=== PATIENT | female | born 1940 | race Caucasian/White ===

== ENCOUNTER 2018-06-24 09:57 | Day surgery (SDC) | payer OTHER, MEDICARE ==
[~2018-06-24] VITALS: Ht 157.5 cm; Wt 129.8 kg
[2018-06-24] MEDS ORDERED: SODIUM CHLORIDE 0.9% 1,000 ML IV SCH ×2 (10:44→15:30)
[2018-06-24 10:49] VITALS: BP 124/79
[2018-06-24] MEDS ORDERED: PLEASE ENTER HEIGHT AND WEIGHT MC SCH (11:00)
[2018-06-24] MEDS ORDERED: CHOL100011 PO (11:02)
[2018-06-24] MEDS ORDERED: ASPI-650 PO (11:02)
[2018-06-24] MEDS ORDERED: AMLO-150 PO (11:02)
[2018-06-24] MEDS ORDERED: LEVO112T4 PO (11:02)
[2018-06-24] MEDS ORDERED: lisinopril PO (11:02)
[2018-06-24] MEDS ORDERED: ASPI81TA45 PO (11:02)
[2018-06-24] MEDS ORDERED: NITROGLYCERIN 5 MG/ML, 10ML ONE (11:49)
[2018-06-24] MEDS ORDERED: MIDAZOLAM 1 MG/ML, 5ML ONE (13:17)
[2018-06-24] MEDS ORDERED: FENTANYL PF 100 MCG/2ML ONE (13:17)
[2018-06-24] MEDS ORDERED: TICAGRELOR 90 MG TABLET ONE (13:17)
[2018-06-24] MEDS ORDERED: LIDOCAINE 2%, 20ML ONE (13:18)
[2018-06-24] MEDS ORDERED: BIVALIRUDIN 250 MG ONE (13:18)
[2018-06-24] MEDS ORDERED: VERAPAMIL 2.5 MG/ML, 2ML ONE (13:18)
[2018-06-24] MEDS ORDERED: HEPARIN 1,000 UNITS/ML, 10ML ONE (13:18)
[2018-06-24] MEDS ORDERED: ACETAMINOPHEN 325 MG TABLET ONE (15:12)
[2018-06-24] MEDS ORDERED: ACETAMINOPHEN 325 MG TABLET PO ONE (15:30)
== END 2018-06-24 17:10 | disposition home or self-care (01) ==
LOC: CACL 09:57
PROVIDERS: ATTEND Internal Medicine Cardiovascular Disease
DX: I35.0 Nonrheumatic aortic (valve) stenosis (principal); I10 Essential (primary) hypertension; Z90.710 Acquired absence of both cervix and uterus; Z90.49 Acquired absence of other specified parts of digestive tract; Z98.890 Other specified postprocedural states; Z72.89 Other problems related to lifestyle; Z88.1 Allergy status to other antibiotic agents
CPT/HCPCS: 93454; 99156; C1769; C1894; J1644; J2250; J3010; J3490; J7030; Q9967; J0583

== ENCOUNTER → 2018-08-02 | Outpatient (CLI) | payer OTHER, MEDICARE ==
[~2018-08-02] MED LIST: AMLO-150 PO; ASPI-650 PO; ASPI81TA45 PO; CHOL100011 PO; LEVO112T4 PO; lisinopril PO
== END | disposition home or self-care (01) ==
LOC: CVU 08:09
PROVIDERS: ATTEND Internal Medicine Cardiovascular Disease
DX: I35.0 Nonrheumatic aortic (valve) stenosis (principal); I70.0 Atherosclerosis of aorta
CPT/HCPCS: C8929; Q9957

== ENCOUNTER 2018-08-05 08:21 | Outpatient (CLI) | payer BC, MEDICARE ==
[2018-08-05] MEDS ORDERED: METOPROLOL 1 MG/ML, 5ML ONE (10:38)
[2018-08-05] MEDS ORDERED: OMNIPAQUE 350 MG/ML, 100ML BOTTLE ONE (11:19)
== END 2018-08-05 23:59 | disposition home or self-care (01) ==
LOC: CVU 08:21 → RAD 23:59
PROVIDERS: ATTEND Internal Medicine Cardiovascular Disease
DX: I51.7 Cardiomegaly (principal); I70.0 Atherosclerosis of aorta; I35.0 Nonrheumatic aortic (valve) stenosis
CPT/HCPCS: 71275; 74174; 94010; 94729; Q9967

== ENCOUNTER 2018-08-10 08:11 | Inpatient (IN) | payer BC, MEDICARE ==
[~2018-08-10] VITALS: Ht 157.5 cm; Wt 123.0 kg
[2018-08-10] MEDS ORDERED: SODIUM CHLORIDE 0.9% 1,000 ML IV ONE ×2 (08:46→09:30)
[2018-08-10] MEDS ORDERED: ONDANSETRON 2MG/ML, 2ML IVPush PRN ×2 (09:00→12:00)
[2018-08-10] MEDS ORDERED: CHLORHEXIDINE 15 ML UDC MM PRN (09:00)
[2018-08-10 09:02] VITALS: BP 142/80
[2018-08-10] MEDS ORDERED: LISI1TAB5 PO (09:27)
[2018-08-10] MEDS ORDERED: METO25TA91 PO (09:28)
[2018-08-10] MEDS ORDERED: PLEASE ENTER HEIGHT AND WEIGHT MC SCH (09:30)
[2018-08-10 09:33] LABS: BASOPHILS # (AUTO) 0.07 x10^3/uL (0-0.1); BASOPHILS % (AUTO) 1 % (0-1); EOSINOPHILS # (AUTO) 0.14 x10^3/uL (0-0.4); EOSINOPHILS % (AUTO) 2 % (1-7); LYMPHOCYTES % (AUTO) 22 % (22-44); MD NO; MEAN CORPUSCULAR HEMOGLOBIN 28.7 pg (27.0-34.8); MEAN CORPUSCULAR HGB CONC 33.3 g/dL (32.4-35.8); MEAN CORPUSCULAR VOLUME 86.2 fL (80-100); MEAN PLATELET VOLUME 9.4 fL (7.4-10.4); MONOCYTES # (AUTO) 0.48 x10^3/uL (0.2-0.8); MONOCYTES % (AUTO) 8 % (2-9); NEUTROPHILS # (AUTO) 4.05 x10^3/uL (1.8-6.8); NEUTROPHILS % (AUTO) 67 % (42-75); PLATELET COUNT 291 x10^3/uL (130-400)
[2018-08-10 09:37] LABS: INTERNATIONAL NORMALIZED RATIO 1.02 (0.93-1.1); PROTHROMBIN TIME 10.7 Seconds (9.6-11.5)
[2018-08-10 09:38] LABS: ALANINE AMINOTRANSFERASE 27 U/L (12-78); ANION GAP 6 mmol/L (5-15); CALCIUM 10.1 mg/dL (8.5-10.1); CHLORIDE 105 mmol/L (98-107); CREATININE 0.79 mg/dL (0.55-1.02)
[2018-08-10 09:43] LABS: ALKALINE PHOSPHATASE 83 U/L (45-117); BILIRUBIN,TOTAL 1.3 mg/dL (0.2-1.0); TOTAL PROTEIN 7.3 g/dL (6.4-8.2)
[2018-08-10] MEDS ORDERED: FENTANYL PF 250 MCG/5ML ONE (10:39)
[2018-08-10] MEDS ORDERED: HYDROcodone/APAP 5/325 TABLET PO PRN (12:00)
[2018-08-10] MEDS: ASPIRIN 81 MG TABLET EC PO SCH (12:00)
[2018-08-10] MEDS ORDERED: hydrALAzine 20 MG/ML, 1ML IVPush PRN (12:00)
[2018-08-10] MEDS ORDERED: LABETALOL 5 MG/ML SYRINGE IVPush PRN (12:00)
[2018-08-10] MEDS: AMLODIPINE 5 MG TABLET PO SCH (12:28)
[2018-08-10] MEDS: METOPROLOL SUCCINATE 25 MG TAB.ER.24H PO SCH (12:28)
[2018-08-10] MEDS ORDERED: PROPOFOL 10 MG/ML, 20ML ONE (14:35)
[2018-08-10] MEDS ORDERED: CEFAZOLIN 1,000 MG ONE (14:35)
[2018-08-10] MEDS ORDERED: ROCURONIUM 10MG/ML,5ML ONE (14:35)
[2018-08-10] MEDS ORDERED: SUCCINYLCHOLINE 20 MG/ML, 10ML ONE (14:35)
[2018-08-10 16:57] VITALS: BP 110/71
[2018-08-10 20:08] VITALS: BP 113/72
[2018-08-10] MEDS: ACETAMINOPHEN 325 MG TABLET PO PRN (20:15)
[2018-08-10] MEDS ORDERED: CLOPIDOGREL 300 MG TABLET PO ONE (21:00)
[2018-08-11 04:00] VITALS: BP 127/74
[2018-08-11 05:58] LABS: ANION GAP 8 mmol/L (5-15); CALCIUM 9.8 mg/dL (8.5-10.1); CHLORIDE 105 mmol/L (98-107)
[2018-08-11 06:00] LABS: CREATININE 0.65 mg/dL (0.55-1.02)
[2018-08-11 06:09] LABS: MEAN CORPUSCULAR HEMOGLOBIN 28.7 pg (27.0-34.8); MEAN CORPUSCULAR HGB CONC 33.2 g/dL (32.4-35.8); MEAN CORPUSCULAR VOLUME 86.3 fL (80-100); PLATELET COUNT 256 x10^3/uL (130-400); RED BLOOD COUNT 4.63 x10^6/uL (3.82-5.3)
[2018-08-11 06:38] LABS: BASOPHILS # (AUTO) 0.04 x10^3/uL (0-0.1); BASOPHILS % (AUTO) 1 % (0-1); EOSINOPHILS # (AUTO) 0.15 x10^3/uL (0-0.4); EOSINOPHILS % (AUTO) 2 % (1-7); LYMPHOCYTES # (AUTO) 0.74 x10^3/uL (1-3.4); LYMPHOCYTES % (AUTO) 8 % (22-44); MD SCAN; MONOCYTES % (AUTO) 8 % (2-9); NEUTROPHILS # (AUTO) 7.44 x10^3/uL (1.8-6.8); NEUTROPHILS % (AUTO) 82 % (42-75)
[2018-08-11 07:24] VITALS: BP 137/91
[2018-08-11] MEDS ORDERED: ACET325T14 PO (08:23)
[2018-08-11] MEDS ORDERED: CLOP75TA PO (08:23)
[2018-08-11] MEDS ORDERED: HYDROCHLOROTHIAZIDE 12.5 MG CAPSULE PO SCH (09:00)
[2018-08-11] MEDS ORDERED: LEVOTHYROXINE 112 MCG TABLET PO SCH (09:00)
[2018-08-11] MEDS ORDERED: LISINOPRIL 20 MG TABLET PO SCH (09:00)
[2018-08-11] MEDS ORDERED: CLOPIDOGREL 75 MG TABLET PO SCH (09:00)
[2018-08-11 10:33] VITALS: BP 151/96
[2018-08-11] MEDS: ASPIRIN 81 MG TABLET EC PO SCH (10:35)
[2018-08-11] MEDS: AMLODIPINE 5 MG TABLET PO SCH (10:37)
[2018-08-11] MEDS: METOPROLOL SUCCINATE 25 MG TAB.ER.24H PO SCH (10:38)
[2018-08-11] MEDS: ACETAMINOPHEN 325 MG TABLET PO PRN (10:46)
[2018-08-11 12:03] VITALS: BP 132/79
== END 2018-08-11 12:50 | disposition home or self-care (01) | DRG 266 ==
LOC: ORIP 08:11 → ICU 12:14 → 5SO 16:23 → DCLOUNGE 08-11 12:38
PROVIDERS: ADMIT Internal Medicine Cardiovascular Disease; ATTEND Internal Medicine Cardiovascular Disease
PROC: B24BZZ4 Ultrasonography of Heart with Aorta, Transesophageal (ICD-10-PCS; 2018-08-10)
PROC: B3101ZZ Fluoroscopy of Thoracic Aorta using Low Osmolar Contrast (ICD-10-PCS; 2018-08-10)
PROC: 05HY33Z Insertion of Infusion Device into Upper Vein, Percutaneous Approach (ICD-10-PCS; 2018-08-10)
PROC: B54NZZA Ultrasonography of Left Upper Extremity Veins, Guidance (ICD-10-PCS; 2018-08-10)
PROC: 02RF38Z Replacement of Aortic Valve with Zooplastic Tissue, Percutaneous Approach (ICD-10-PCS; principal; 2018-08-10 11:30)
DX: I35.0 Nonrheumatic aortic (valve) stenosis (principal); Z00.6 Encounter for examination for normal comparison and control in clinical research program; I50.33 Acute on chronic diastolic (congestive) heart failure; Z68.42 Body mass index [BMI] 45.0-49.9, adult; E66.01 Morbid (severe) obesity due to excess calories; I11.0 Hypertensive heart disease with heart failure
CPT/HCPCS: 33361; 36415; 80048; 80053; 83880; 85025; 85347; 85610; 85730; 86850; 86900; 86923; 87081; 93005; 93306; 93312; 93321; 93325; 93355; C1760; C1769; C1894; G0378; J0690; J2704; J3010; J0330; J0360; J7030; Q9967

== ENCOUNTER → 2018-09-14 | Outpatient (CLI) | payer BC, MEDICARE ==
[~2018-09-14] MED LIST changes: +ACET325T14 PO; +CLOP75TA PO; +LISI1TAB5 PO; +METO25TA91 PO
== END | disposition home or self-care (01) ==
LOC: CVU 10:29
PROVIDERS: ATTEND Internal Medicine Cardiovascular Disease
DX: I10 Essential (primary) hypertension (principal); I35.0 Nonrheumatic aortic (valve) stenosis
CPT/HCPCS: 93306